=== PATIENT | female | born 2000 | race Caucasian/White ===

== ENCOUNTER 2024-01-24 20:21 | Emergency (ER) | payer BC, SELFPAY ==
[2024-01-24 20:25] VITALS: BP 126/76; PULSE 102; RESP 20; TEMP 36.2; O2SAT 98; BMI 26.5
--- NOTE | 2024-01-24 21:03 | CRLHL7_ITS ---
For Patients: As a result of the Century Cures Act, medical imaging exams and procedure reports are released immediately into your electronic medical record. You may view this report before your referring provider. If you have questions, please contact your health care provider. INDICATION: Dyspnea. TECHNIQUE: Chest radiographs, 2 views. COMPARISON: None. FINDINGS: Cardiovascular/Mediastinum: Normal heart size. Unremarkable. Lungs: No focal consolidation. Airways: Trachea remains midline. Pleura: No pleural effusions or pneumothorax. Bones: No acute osseous abnormalities. Upper abdomen: Unremarkable. IMPRESSION: No acute cardiopulmonary process. Dictated by Aubrey Camacho MD @ 01/24/2024 10:36:19 PM (Electronically Signed)
[2024-01-24 21:13] LABS: Appearance Urine Clear (Clear); Bilirubin Urine Negative (Negative); Blood Urine Negative (Negative); Color Urine Yellow (Yellow); Glucose Urine Negative (Negative); Ketones Urine Trace (Negative); Leukocyte Esterase Urine Negative (Negative); Nitrite Urine Negative (Negative); Protein Urine Negative (Negative); Urobilinogen Urine 0.2 (0.2-1.0)
[2024-01-24 21:18] LABS: RBC Urine 0-2 (0-2); Squamous Epithelial Cell Urine Few (None-Few); Ur HCG Qualitative* Negative (Negative); WBC Urine 0-2 (0-5)
[2024-01-24 21:23] LABS: Amphetamine Screen Urine Negative (Negative); Barbiturate Screen Urine Negative (Negative); Benzodiazepines Screen Urine Negative (Negative); Cannabinoid Screen Urine POSITIVE (Negative); Cocaine Screen Urine Negative (Negative); Methadone Screen Urine Negative (Negative); Methamphetamines Screen Urine Negative (Negative); Opiate Screen Urine Negative (Negative); Oxycodone Screen Urine Negative (Negative); Phencyclidine Screen Urine Negative (Negative); Tricyclic Antidepressant Urine Negative (Negative)
[2024-01-24 21:30] LABS: Lactate* 2.8 mmol/L (0.5-1.9)
[2024-01-24] MEDS: 0.9 % SODIUM CHLORIDE 1000 ml 1,000 ML IV (21:30)
[2024-01-24] MEDS: LORazepam 2 MG/ML inj 0.5 MG IVP (21:34)
[2024-01-24 21:36] VITALS: BP 126/91; PULSE 63; O2SAT 100
[2024-01-24 21:48] LABS: Albumin* 4.8 g/dL (3.3-5.0); Chloride* 111 mmol/L (96-114)
[2024-01-24 21:49] LABS: Mono Screen* Negative (Negative); Potassium* 3.8 mmol/L (3.6-5.1); Sodium* 140 mmol/L (135-149)
[2024-01-24 21:51] LABS: Anion Gap 12 mEq/L (7-15); Aspartate Amino Transferase* 29 U/L (12-35); Bilirubin Direct* 0.4 mg/dL (0.0-0.5); Bilirubin Total* 0.6 mg/dL (0.1-1.5); Carbon Dioxide* 17 mmol/L (20-32); Creatinine* 0.6 mg/dL (0.5-1.5); Est. Creatinine Clearance* 116.32; Estimated Glomerular Filt Rate 130 ml/min
[2024-01-24 21:52] LABS: Alanine Aminotransferase* 15 U/L (4-35); Alkaline Phosphatase* 45 U/L (40-150); Blood Urea Nitrogen* 7 mg/dL (5-24); Creatine Kinase* 110 U/L (41-117); Glucose* 121 mg/dL (60-115)
[2024-01-24 21:54] LABS: C Reactive Protein* 1.9 mg/dL (0.5-1.0)
[2024-01-24 21:56] LABS: Hematocrit 39.9 % (33.0-51.0); Hemoglobin* 13.7 gm/dL (12.0-16.0); Mean Corpuscular Hemoglobin 30 pg (26-34); Mean Corpuscular Volume 87 fL (80-100); Red Blood Count 4.61 m/uL (4.00-5.20)
[2024-01-24 21:57] LABS: Basophils Percent Auto 0.1 % (0.0-3.0); Eosinophils Percent Auto 0.1 % (0.0-7.0); Lymphocytes Percent Auto 27.6 % (20-44); Mean Corpuscular HGB Conc 34 gm/dL (32-36); Monocytes Percent Auto 7.9 % (0.0-11.0); Neutrophils Percent Auto 64.2 % (42.0-72.0); Platelet Count* 223 K/uL (140-440); Slide Review Reflex No
[2024-01-24 22:00] LABS: Strep A DNA Probe* NOT DETECTED (Not Detectd)
[2024-01-24 22:13] LABS: PCR FLU A Negative PCR FLU A (Negative); PCR FLU B Negative PCR FLU B (Negative); PCR RSV Negative PCR RSV (Negative); SARS PCR* Negative SARS-CoV-2 (Negative)
[2024-01-24 22:30] VITALS: PULSE 62; O2SAT 99
--- NOTE | 2024-01-24 22:43 | ED_ITS ---
HPI - General Adult General Chief complaint: Unspecified Complaint, Adult Stated complaint: Shaking,shivering, dizzy, severe muscle cramps Time Seen by Provider: 01/24/24 20:55 Source: patient Mode of arrival: ambulatory Limitations: no limitations History of Present Illness HPI narrative: 23-year-old female presenting today with shivering, cold symptoms and leg cramps. Patient is very concerned about the leg cramping specifically because she has never had this before. She thinks something might be seriously wrong. She denies chest pain or shortness of breath. She states she has been shivering all day nonstop. Her friend found her on the floor after she had been lying there for 2 hours because she did have the strength to get up. She has any new or drink very much today. She does smoke marijuana regularly but states that she smokes the same strain has not smoked anything new recently. She has not been vomiting. No diarrhea. No skin rashes. No urinary symptoms. No abdominal pain. Leg cramping is bilateral and symmetric. Patient denies any recent alcohol use, denies other drug use. Related Data Allergies Allergy/AdvReac Type Severity Reaction Status Date / Time No Known Drug Allergies Allergy Verified 01/24/24 20:29 Review of Systems Status of ROS: Reports: 10 or more systems reviewed and unremarkable except as noted in History and below Exam Narrative: Exam Narrative: Well-nourished well-developed patient, very anxious. Alert and oriented x3. Answers questions appropriately. Patient speaks in full sentences without needing to catch her breath. Patient does shaver and her teeth chatter on and off. She can generally stops chattering when she speaks. HEENT: Normocephalic atraumatic. Pupils are equally round reactive to light. Extraocular muscles are intact. Conjunctivae are moist without any icterus noted. Moist mucous membranes. Posterior pharynx is normal. Neck is soft without any lymphadenopathy or thyromegaly. No masses are appreciated. Multiple facial piercings. Cardiovascular: Heart is regular rate and rhythm S1 and S2 are present without any murmurs. Lungs: Clear to auscultation bilaterally no wheezes rhonchi or rales are appreciated. Patient takes deep breaths without any discomfort. Abdomen: Soft and nontender nondistended with normal bowel sounds. No guarding or rebound. No masses or organomegaly appreciated. Extremities: Bilateral lower extremities are without edema. Normal DP and PT pulses. Skin: Well perfused without any obvious rashes. Const: Vital Signs, click to edit/add: Vital Signs - 24 hr 01/24/24 20:25 Temperature 97.2 F L Pulse Rate [Left P ulse Oximeter] 102 H Respiratory Rate 20 Blood Pressure [Ri ght Upper Arm] 126/76 Pulse Oximetry 98 Oxygen Delivery Me thod Room Air Course Course ED Course: IV was established and patient given IV Ativan and normal saline. Blood was drawn and a CBC was entirely normal. Chemistries were unremarkable. Lactate was elevated at 2.8. Normal LFTs. CRP 1.9. Normal TSH. Urine positive for trace ketones. The urine drug screen positive for marijuana. Triple swab is negative. Negative for mono and strep. Discussed results with the patient. She was eating crackers and having chills swelling went to talk to her. Her chattering would stop if she was chewing which was reassuring. I discussed if she has felt comfortable going home at this time given her workup was unremarkable. I do think she is likely somewhat dehydrated today. Patient felt comfortable with everything we discussed had no other questions she will follow up as needed. Vital Signs Vital signs: Initial Vital Signs Temperature 97.2 F L 01/24/24 20:25 Temperature Source Temporal Artery Scan 01/24/24 20:25 Pulse Rate 102 H 01/24/24 20:25 Pulse Rhythm Regular 01/24/24 20:25 Respiratory Rate 20 01/24/24 20:25 Blood Pressure 126/76 01/24/24 20:25 Blood Pressure Mean 92 01/24/24 20:25 Blood Pressure Position Sitting 01/24/24 20:25 Pulse Oximetry 98 01/24/24 20:25 Oxygen Delivery Method Room Air 01/24/24 20:25 Vital Signs Temperature 97.2 F L 01/24/24 20:25 Pulse Rate 102 H 01/24/24 20:25 Respiratory Rate 20 01/24/24 20:25 Blood Pressure 126/76 01/24/24 20:25 Pulse Oximetry 98 01/24/24 20:25 Oxygen Delivery Method Room Air 01/24/24 20:25 Temperature 97.2 F L 01/24/24 20:25 Pulse Rate 102 H 01/24/24 20:25 Respiratory Rate 20 08/08/24 20:25 Blood Pressure 126/76 01/24/24 20:25 Pulse Oximetry 98 01/24/24 20:25 Oxygen Delivery Method Room Air 01/24/24 20:25 Medications Administered Medications: Discontinued Medications Generic Name Dose Route Start Last Admin Trade Name Sachinq PRN Reason Stop Dose Admin Sodium Chloride 1,000 mls @ 1,000 mls/hr 01/24/24 21:15 01/24/24 21:30 0.9 % Sodium Chloride 1000 Ml IV 01/24/24 22:14 1,000 mls/hr .Q1H FAMILIA Administration Lorazepam 0.5 mg 01/24/24 21:02 01/24/24 21:34 Lorazepam 2 Mg/Ml Inj IVP 01/24/24 21:03 0.5 mg ONCE ONE Administration Medical Decision Making MDM Narrative Medical decision making narrative: 23-year-old female with shivering, dehydration. Treated per above. Lab Data Lab results reviewed: Yes I reviewed the patient's lab results Labs: Lab Results 01/24/24 01/24/24 Range/Units 20:45 21:20 WBC 7.80 (4.50-11.00) K/uL RBC 4.61 (4.00-5.20) m/uL Hgb 13.7 (12.0-16.0) gm/dL Hct 39.9 (33.0-51.0) % MCV 87 (80-100) fL MCH 30 (26-34) pg MCHC 34 (32-36) gm/dL Plt Count 223 (140-440) K/uL Neut % (Auto) 64.2 (42.0-72.0) % Lymph % (Auto) 27.6 (20-44) % Antelope % (Auto) 7.9 (0.0-11.0) % Eos % (Auto) 0.1 (0.0-7.0) % Baso % (Auto) 0.1 (0.0-3.0) % Neut # (Auto) 5.00 (1.7-7.0) K/uL Lymph # (Auto) 2.20 (0.90-2.90) K/uL Antelope # (Auto) 0.60 (0.00-0.90) K/UL Eos # (Auto) 0.00 (0.00-0.50) K/uL Baso # (Auto) 0.00 (0.00-0.30) K/uL Sodium 140 (135-149) mmol/L Potassium 3.8 (3.6-5.1) mmol/L Chloride 111 (96-114) mmol/L Carbon Dioxide 17 L (20-32) mmol/L Anion Gap 12 (7-15) mEq/L BUN 7 (5-24) mg/dL Creatinine 0.6 (0.5-1.5) mg/dL Estimated Creat Clear 116.32 Estimated GFR 130 ml/min Glucose 121 H (60-115) mg/dL Lactate 2.8 H (0.5-1.9) mmol/L Calcium 10.0 (8.4-10.6) mg/dL Total Bilirubin 0.6 (0.1-1.5) mg/dL Direct Bilirubin 0.4 (0.0-0.5) mg/dL AST 29 (12-35) U/L ALT 15 (4-35) U/L Alkaline Phosphatase 45 (40-150) U/L Total Creatine Kinase 110 (41-117) U/L C-Reactive Protein 1.9 H (0.5-1.0) mg/dL Total Protein 8.0 (6.0-8.3) g/dL Albumin 4.8 (3.3-5.0) g/dL TSH 1.390 (0.270-4.20) uIU/mL Urine Color Yellow (Yellow) Urine Appearance Clear (Clear) Urine pH 7.0 (5.0-8.5) Ur Specific [place] 1.010 (1.000-1.030) Urine Protein Negative (Negative) Urine Glucose (UA) Negative (Negative) Urine Ketones Trace A (Negative) Urine Blood Negative (Negative) Urine Nitrite Negative (Negative) Urine Bilirubin Negative (Negative) Urine Urobilinogen 0.2 (0.2-1.0) Ur Leukocyte Esterase Negative (Negative) Urine RBC 0-2 (0-2) Urine WBC 0-2 (0-5) Ur Squamous Epith Cells Few (None-Few) Urine Bacteria None (None) Urine HCG, Qual Negative (Negative) Urine Opiates Screen Negative (Negative) Ur Oxycodone Screen Negative (Negative) Urine Methadone Screen Negative (Negative) Ur Barbiturates Screen Negative (Negative) U Tricyclic Antidepress Negative (Negative) Ur Phencyclidine Scrn Negative (Negative) Ur Amphetamines Screen Negative (Negative) U Methamphetamines Scrn Negative (Negative) U Benzodiazepines Scrn Negative (Negative) Urine Cocaine Screen Negative (Negative) U Marijuana (THC) Screen POSITIVE A (Negative) Ur Drug Screen Comment See Note SARS-CoV-2 (PCR) Negative SARS-CoV-2 (Negative) Monoscreen Negative (Negative) Influenza Type A (PCR) Negative PCR FLU A (Negative) Influenza Type B (PCR) Negative PCR FLU B (Negative) RSV (PCR) Negative PCR RSV (Negative) Group A Strep DNA NOT DETECTED (Not Detectd) Imaging Data Chest x-ray: Attestation: I have reviewed the pertinent imaging results. Radiologist's impression: Chest radiographs, 2 views. COMPARISON: None. FINDINGS: Cardiovascular/Mediastinum: Normal heart size. Unremarkable. Lungs: No focal consolidation. Airways: Trachea remains midline. Pleura: No pleural effusions or pneumothorax. Bones: No acute osseous abnormalities. Upper abdomen: Unremarkable. IMPRESSION: No acute cardiopulmonary process. Discharge Plan Discharge Clinical Impression: Shivering, Acute dehydration Patient Disposition: Home, Self-Care Condition: Stable Additional Instructions: Make sure to increase your daily water intake. Make sure that you get a good night sleep. Follow-up with your primary care provider as needed. Follow Up/Referrals: Paul Crowe MD [Staff Physician] - Stand Alone Forms: [facility] Info Instructions
--- OUTSIDE RECORDS SUMMARY | 2024-01-24 22:53 | XMS_ITS | Clinical Summary ---
Author Organization [facility] Address [place], [place] [address] Care Team Providers Care Batch Room Technician Name Role Phone [facility] - Primary Care Provider Allergies Active Allergy Reactions Criticality Noted Date Comments Latex Rash 05/26/2012 Medications Medication Sig Dispensed Refills Start Date End Date Status escitalopram oxalate (LEXAPRO) 10 mg tabletIndications:Depre ssion with anxiety Take 1 Tablet (10 mg) by mouth every morning. 30 Tablet 1 05/30/2022 Active drospirenone-ethinyl estradioL (ANNALEE) 3-0.02 mg tabletIndications:Encou nter for initial prescription of contraceptive pills,Menstrual cramps Take 1 Tablet by mouth once daily. 84 Tablet 3 05/30/2022 Active Active Problems No known active problems Immunizations Name Administration Dates Next Due COVID-19 vaccine (Frameri-Bio NTech 30mcg/0.3mL) PF, MDV 06/20/2021 DTaP 02/11/2007, 3,06/24/2002,04/08,01/21/2002 HIB-HepB (Comvax) 11/25/2002,04/08/2002,01/22/20 02 HPV 9 (Gardasil 9) 11/21/2018 Hepatitis A (Peds) 11/21/2018,12/16/2014 Inactivated Polio Vaccine 02/11/2007,12/2002,04/08/2002,01/21 MMR 02/11/2007,11/25/2002 Meningococcal Vaccine (Menactra) 12/16/2012 Meningococcal Vaccine (Menveo) 11/21/2018 Pneumococcal conj 7-Valent (Prevnar 7) 3,04/08/2002,01/21/2002 Tdap 12/16/2012 Varicella Vaccine 04/01/2009,11/25/2002 Family History Medical History Relation Name Comments No Known Problems Father Depression Mother Hyperthyroidism Mother Relation Name Status Comments Father Alive Mother Alive Social History Tobacco Use Types Packs/Day Years Used Date Smoking Tobacco: Never Smokeless Tobacco: Never Tobacco Cessation:Counseling Given: Not Answered Alcohol Use Standard Drinks/Week Comments No 0 (1 standard drink = 0.6 oz pur e alcohol) PHQ-2 Answer Date Recorded PHQ-2 TOTAL SCORE 5 05/30/2022 Social Connections Answer Date Recorded Frequency of Communication with Friends and Fami ly Not on file 06/20/2021 Financial Resource Strain Answer Date R ecorded Difficulty of Paying Living Expenses Not on file 06/20/2021 Difficulty of Paying Living Expenses Not on file 06/20/2021 Sex and Gender Information Value Date Recorded Sex Assigned at Not on file Gender Identity Not on file Sexual Orientation Not on file Obstetrics History Para Term AB IAB SAB Ectopic Multiple Livin g Live Births 0 0 0 0 0 0 0 0 0 0 0 Last Filed Vital Signs Vital Sign Reading Time Taken Comments Blood Pressure 104/68 05/30/2022 12:28 PM HADOOP DEVELOPER Pulse 65 05/30/2022 12:28 PM HADOOP DEVELOPER Temperature 36.3 ??C (97.4 ??F) 05/26/2012 5:14 PM CS T Respiratory Rate 18 05/26/2012 5:14 PM HADOOP DEVELOPER Oxygen Saturation 98% 05/30/2022 12:28 PM HADOOP DEVELOPER Inhaled Oxygen Concentration - - Weight 61.4 kg (135 lb 4.8 oz) 05/30/2022 12:28 PM HADOOP DEVELOPER Height 159 cm (5' 2.6) 05/30/2022 12:28 PM HADOOP DEVELOPER Body Mass Index 24.27 05/30/2022 12:28 PM HADOOP DEVELOPER Plan of Treatment Health Maintenance Due Date Last Done Comments HIV for age 15-65 2016 Chlamydia for age 16-24 2017 HPV series for age 9-26 (2 - 3-dose series) 12/19/2018 11/21/2018 Hepatitis C screening for ag e 18-79 11/19/2019 Pap test for age 21-65 2022 Tetanus booster 12/16/2022 12/16/2012 COVID-19 vaccine series (2022- season) 2023 06/20/2021, 11/23/2020, 10/26/2020 BMI (ht and wt on same day) for age 18+ 05/30/2023 05/30/2022, 02/08/2022, 06/20/2021 Depression screening for age 12+ 05/30/2023 05/30/2022, 06/20/2021 Influenza for age 9-49 02/17/2024 Pneumococcal series for age 6-64 Aged Out 06/24/2002, 04/08/2002, 01/21/2002 No longer eligible based on patient's age to complete this topic Tdap Completed 12/16/2012 Care Teams Batch Room Technician Relationship Specialty Start Date End Date [facility] - [address] [place] [address] PCP - General 05/26/12
--- OUTSIDE RECORDS SUMMARY | 2024-01-24 22:53 | XMS_ITS | Clinical Summary ---
Author Organization [facility] Address [address] [address] Care Team Providers Care Emergency Communications Dispatcher Name Role Phone Unavailable Primary Care Provider Unavailabl e Source Comments You are receiving this document as you are listed as the primary care provider,follow-up provider, or the patient has been referred to you for consultation.This is in compliance with the Medicare andMedicaid EHR Incentive Program,which states Providers who transition their patient to another setting of careor provider of care or refers their patient to another provider of care shouldprovide summary care record for each transition of care or referral. [facility] Allergies No known active allergies Medications Medication Sig Dispensed Refills Start Date End Date Status cetirizine (ZYRTEC) 10 MG tablet Take 10 mg by mouth daily. Active Active Problems No known active problems Social History Tobacco Use Types Packs/Day Years Used Date Smoking Tobacco: Never Smokeless Tobacco: Never Alcohol Use Standard Drinks/Week Comments Never 0 (1 standard drink = 0.6 oz pur e alcohol) AUDIT-C Answer Date Recorded Q1: How often do you have a drink containing alc ohol? Never 08/28/2020 Average Number of Drinks Not on file 021 Frequency of Binge Drinking Not on file 08/16 Sex and Gender Information Value Date Recorded Sex Assigned at Not on file Gender Identity Not on file Sexual Orientation Not on file Last Filed Vital Signs Vital Sign Reading Time Taken Comments Blood Pressure 109/58 08/28/2020 2:46 PM EDI DEVELOPER Pulse 89 08/28/2020 2:46 PM EDI DEVELOPER Temperature - - Respiratory Rate 16 08/28/2020 2:21 PM EDI DEVELOPER Oxygen Saturation 100% 08/28/2020 2:21 PM EDI DEVELOPER Inhaled Oxygen Concentration - - Weight - - Height - - Body Mass Index - - Plan of Treatment Health Maintenance Due Date Last Done Comments Cervical Cancer Screening Due 2001 Chlamydia 2001 Hep C Screening (Preventive Services) 2001 HIV Screening (Preventive Services) 2017 HPV Vaccine (2 - 3-dose series) 12/19/2018 11/21/2018 Adult Preventive Visit 11/19/2019 HepB (1) 2020 DTaP/Tdap/Td (7 - Tdap) 12/16/2022 12/17/19 13, 02/11/2007, 06/02/2003, Additional history exists COVID-19 Vaccine (2022- season) 2023 11/23/2020, 10/26/2020 Influenza (#1) 2024 05/10/2015, 05/01/2014 Zoster/Shingles (1 of 2) 11/19/2051 Pneumococcal Aged Out 06/24/2002, 03/19, 01/21/2002 No longer eligible based on patient's age to complete this topic Hib Completed 11/25/2002, 03/19, 01/21/2002 IPV (Polio) Completed 02/11/2007, 12/2002, 04/08/2002, Additional history exists HepA Completed 11/21/2018, 12/16/2014 MCV4 Completed 11/21/2018, 12/16/2012
[2024-01-24 22:55] VITALS: BP 119/100
== END 2024-01-24 23:16 | disposition home or self-care (01) ==
PROVIDERS: Emergency Provider Family Medicine
DX: R68.83 Chills (without fever) (principal); E86.0 Dehydration
CPT/HCPCS: 36415; 71046; 80048; 80076; 80306; 81001; 81025; 82550; 83605; 84443; 85025; 86140; 86308; 87086; 87631; 87651; 96374; 99284; J2060; J7030